=== PATIENT | male | born 1945 | race Caucasian/White ===

== ENCOUNTER 2019-09-08 18:19 | Inpatient (IN) | payer MEDICARE, SELFPAY ==
[2019-09-08] VITALS (10 sets, daily range): BP systolic 90–137; BP diastolic 64–88; PULSE 99–108; RESP 22–25; TEMP 35.9–36.6; O2SAT 85–100; BMI 29.6
--- NOTE | ~2019-09-08 | US_ITS ---
EXAMINATION:US venous doppler LE BI INDICATION:Lower extremity pain TECHNIQUE: Multiple grayscale, color flow and Doppler images of the lower extremity deep venous syste ms were obtained and reviewed. COMPARISON:No prior studies for comparison. FINDINGS: The common femoral, superficial femoral and popliteal veins demonstrate normal respiratory variation, augmentation and compressibility. Color flow is also seen within the posterior tibial, pe roneal, greater saphenous and profunda veins. IMPRESSION: 1: No lower extremity deep venous thrombosis. Reviewed, dictated and finalized at location A. ATTACHER
--- NOTE | ~2019-09-08 | XR_ITS ---
EXAMINATION: XR barium swallow modified EXAM DATE: 09/09/2019 13:18 INDICATION: Dysphagia. TECHNIQUE: Modified barium esophagram was performed by myself to administered fluoroscopy, in conjun ction with speech pathologist who administered barium in varying consistencies as per speech patholog ist documentation. This was recorded on tape. The DAP for this procedure was 4.4 Gycm2. FINDINGS: Oral stage: Adequate function. Pharyngeal phase: Sinus residual. Laryngeal penetration: Demonstrated. Aspiration: Demonstrated, thin liquids. Laryngeal sensitivity: Absent. IMPRESSION: Aspiration demonstrated. Please refer to speech pathologist findings and specific feeding recommendations. Reviewed, dictated and finalized at location A. STANT BRANCH OPERATIONS MANAGER IMPRESSION: Aspiration demonstrated. Please refer to speech pathologist finding s and specific feeding recommendations.
--- NOTE | ~2019-09-08 | XR_ITS ---
EXAMINATION: XR chest 2V DATE: 09/11/2019 09:21 INDICATION: Pneumonia and shortness of breath. TECHNIQUE: frontal and lateral views of the chest were obtained. COMPARISON: Chest radiograph dated 09/08/2019 FINDINGS: Evaluation mildly limited by patient body habitus. Small lung volumes which is further exaggerated on the frontal projection by a severe thoracic kyphosis. Airspace opacities in the lateral lower lung z ones consistent with atelectasis and/or pneumonia superimposed over small bilateral pleural effusions . No pneumothorax. Cardiac silhouette is obscured. Large hiatal hernia. Retained oral contrast materi al in the proximal colon. Chronic midthoracic compression fractures. IMPRESSION: 1. Decreased lung volumes with small bilateral pleural effusions and opacities in the lower lung zone s which could represent atelectasis and/or pneumonia. 2. Large hiatal hernia. Reviewed, dictated and finalized at location A. EL CLEANER IMPRESSION: 1. Decreased lung volumes with small bilateral pleural effusions and opacities in the lower lung zones which could represent atelectasis and/or pneumonia. 2. Large hiatal hernia.
--- NOTE | ~2019-09-08 | XR_ITS ---
EXAMINATION: XR chest 1V portable INDICATION: Shortness of breath TECHNIQUE: Portable AP chest at 1919 hours COMPARISON: None available FINDINGS: The patient is rotated. The lung volumes are low. There are airspace opacities throughout t he right lung and in the left lung base. The heart size is difficult to assess. There is a questionab le hiatal hernia. IMPRESSION: 1. Airspace opacities throughout the right lung and in the left lung base, consistent with atelectasi s versus pneumonia. Reviewed, dictated and finalized at location A. ACTIONS TECHNICIAN IMPRESSION: 1. Airspace opacities throughout the right lung and in the left lung base, cons istent with atelectasis versus pneumonia.
--- NOTE | ~2019-09-08 | US_ITS ---
US art doppler w press LE 09/09/2019 16:12 Indication: Evaluate arterial flow and distal lower extremity bilaterally. Procedure: High-resolution Limited arterial Doppler examination of the lower extremity arteries Comparison: No prior studies for comparison. Findings: There is Doppler signal throughout the lower extremity arteries bilaterally. There is bipha sic flow in the common femoral, superficial femoral, popliteal and dorsalis pedis arteries with monop hasic flow in the posterior tibial arteries. Patient refused blood pressure cuff measurements. Examin ation limited due to leg contractures and patient pain. Impression: 1: Doppler signal identified throughout the lower extremity arteries with mixed monophasic and biphas ic flow. Limited study. Reviewed, dictated and finalized at location A. AID Impression: 1: Doppler signal identified throughout the lower extremity arteries with mixed monophasic and biphasic flow. Limited study.
--- NOTE | ~2019-09-08 | XR_ITS ---
EXAMINATION: XR chest 2V DATE: 09/13/2019 11:25 INDICATION: Pneumonia. Follow-up. TECHNIQUE: Frontal and lateral views of the chest were obtained. COMPARISON: Chest 2 views 09/11/2019, CT abdomen and pelvis 08/28/2015 FINDINGS: The lung volumes are small. There are airspace opacities in all right lung zones and in lef t lower lung zone. There are small pleural effusions. No pneumothorax. The heart size is normal. Ther e is a large hiatal hernia. IMPRESSION: 1. Small lung volumes with airspace opacities in right lung and left lower lung zone with worsening o n the right, consistent with atelectasis versus pneumonia. 2. Small pleural effusions. 3. Large hiatal hernia. Reviewed, dictated and finalized at location A. TH INFORMATION PROVIDER IMPRESSION: 1. Small lung volumes with airspace opacities in right lung and left lower lung zone with worsening on the right, consistent with atelectasis versus pneumonia . 2. Small pleural effusions. 3. Large hiatal hernia.
--- NOTE | ~2019-09-08 | XR_ITS ---
EXAMINATION: XR barium swallow modified DATE: 09/14/2019 11:57 INDICATION: Dysphagia, coughing with thin liquids TECHNIQUE: The patient was given barium-containing material of multiple consistencies to swallow by ketan contreras speech pathologist while I performed fluoroscopy. A single fluoroscopic spot image was recorded. Ketan contreras DAP for this procedure was 3.914 Gycm2. Fluoroscopy exposure time was 2.9 minutes. A single latera l spot radiograph of the neck soft tissues was obtained. FINDINGS: Oral stage: Adequate function. Pharyngeal phase: Adequate function. Laryngeal penetration: Present with solids. Aspiration: Present within liquids by straw. Laryngeal sensitivity: Present. IMPRESSION: 1. Findings as described above. Please refer to the speech therapy report for additional swallow-rela jm findings and intake recommendations. Reviewed, dictated and finalized at location A. 'S ASSISTANT IMPRESSION: 1. Findings as described above. Please refer to the speech therapy report for a dditional swallow-related findings and intake recommendations.
--- NOTE | 2019-09-08 18:32 | ED_ITS ---
I attest that this documentation has been prepared under the direction and in the presence of Sean Haynes MD. Leah Floyd Scribe 09/08/19;18:32 HPI - General Adult General Stated complaint: choking Time Seen by Provider: 09/08/19 18:21
--- NOTE | 2019-09-08 18:34 | ECG_ITS ---
Measurements Intervals Schlater Rate: 104 P: 5 OH: 206 QRS: 0 QRSD: 84 T: 2 QT: 350 QTc: 461 Interpretive Statements SINUS TACHYCARDIA MINIMAL Q WAVES- DIFFUSE LEADS BORDERLINE ST-T WAVE ABNORMALITY- DIFFUSE LEADS BASELINE ARTIFACT- I, II, III, AVR, V3-V4 ABNORMAL ECG Electronically Signed On 09-09-2019 8:14:47 CREDIT OR LOANS OFFICER by William Katz D.O.
--- NOTE | 2019-09-08 18:35 | ED.GENADULT ---
HPI - General Adult General Chief complaint: Unspecified Stated complaint: choking Time Seen by Provider: 09/08/19 18:21 Source: patient, EMS and RN notes reviewed Mode of arrival: EMS History of Present Illness HPI narrative: Pt is a 74 y/o male who presents to the ED, via EMS from 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 Pt states that he is unsure why is here at [facility]. Per EMS, pt blacked out on the way to dinner and during dinner. Pt was choking on broccoli and cauliflower and nursing staff started doing abdominal thrusts on the pt. Nursing staff was able to get the food out with doing the finger sweep. Per pt, pt denies wearing O2 at home. Pt also denies CP and SOB. HPI is limited due to pt's clinical condition. complaint: Choking on Food Onset (ago): minute(s) Pain Consistency: now resolved Associated symptoms: syncope and other (limited due to pt's clinical condition) Treatments prior to arrival: other (abdominal thrusts, finger sweep) Related Data Home Medications Medication Instructions Recorded Confirmed acetaminophen [Tylenol] 650 mg PO Q6H PRN 09/08/19 09/08/19 bisacodyl 5 mg PO HS PRN 09/08/19 09/08/19 calcium carbonate-vitamin D3 1 tablet PO BID 09/08/19 09/08/19 [Calcium 600 + D(3)] cyanocobalamin (vitamin B-12) 1,000 mcg IM MONTHLY 09/08/19 09/08/19 docusate sodium [Colace] 100 mg PO DAILY 09/08/19 09/08/19 lisinopril 10 mg PO DAILY 09/08/19 09/08/19 multivitamin 1 tablet PO DAILY 09/08/19 09/08/19 pantoprazole 40 mg PO BID 09/08/19 09/08/19 polysaccharide iron complex 150 mg PO BID 09/08/19 09/08/19 [Poly-Iron] Allergies Allergy/AdvReac Type Severity Reaction Status Date / Time No Known Allergies Allergy Verified 09/08/19 18:56 Review of Systems Review of Systems: ROS unobtainable: other (limited due to pt's clinical condition) Cardiovascular: Cardiovascular: Denies chest pain Respiratory: Respiratory: Denies dyspnea PMFSH Past Medical History Medical History Anxiety Cerebral cysts COPD (chronic obstructive pulmonary disease) CVA (cerebrovascular accident) affecting the right non-dominant side Essential hypertension GERD (gastroesophageal reflux disease) GI bleed Hemiplegia Iron deficiency anemia Obstructive hydrocephalus Peripheral artery disease Rheumatoid arthritis Surgical History Surgical History Surgical history unknown Family History Family History Father Hypertension Grandparent Colon cancer Mother Alzheimer disease Social History Social History Smoking status: Never smoker Alcohol intake: never Substance use: never Living arrangements: skilled nursing Additional living arrangements comments: Pt lives at [facility]. Gender identity (if verbalized by the patient): Male Spiritual care concerns: No Agree to blood products: Yes Exam Narrative: Exam Narrative: GENERAL: Chronically ill l-appearing, well-nourished, and in no acute distress. HEAD: Normocephalic, atraumatic. ENT: Mucous membranes moist. NECK: Supple. CHEST: Rales bilateral bases and right midlung zone. No respiratory distress. HEART: Regular rate and rhythm. Normal peripheral pulses. ABDOMEN: Soft, nontender, nondistended. EXTREMITIES: Chronic right-sided weakness, left lower extremity deformity and foot ankle that is chronic. Trace edema. NEURO: Alert and oriented x3 a poor historian. Cranial nerves II through XII intact. PSYCH: Normal mood and affect. Course Course Emergency Course: Informed patient and family of diagnosis and care plan. Zosyn ordered. Consultations Consultation #1: Discussed case with Dr. Butts (Hospitalist). Accepts admission. Date: 09/08/19 Time: 20:09 Vital Signs Vital signs: Vital Signs Temperature 96.
[2019-09-08] MEDS: IPRATROPIUM BR 0.02% INH SOLN 0.5 MG/2.5 ML VIAL INHALATION (19:04)
[2019-09-08] MEDS: ALBUTEROL SULFATE NEB 2.5 MG/0.5 ML INH 5 MG INHALATION (19:04)
[2019-09-08 19:11] LABS: Basophils Absolute Auto 0.1 K/mm3 (0.0-0.1); Basophils Percent Auto 0.4 % (0.2-1.2); Eosinophils Absolute Auto 0.3 K/mm3 (0-0.3); Eosinophils Percent Auto 1.7 % (0-4.4); Hematocrit 39.5 % (42.0-52.0); Hemoglobin 12.4 g/dL (14.0-18.0); Immature Granulocyte Absolute 0.32 K/mm3 (0.00-0.031); Lymphocytes Absolute Auto 1.76 K/mm3 (0.9-3.2); Lymphocytes Percent Auto 11.3 % (18.3-44.2); Mean Corpuscular HGB Conc 31.4 g/dl (32-36); Mean Corpuscular Hemoglobin 28.4 pg (26-34); Mean Corpuscular Volume 90.6 fl (80-100); Mean Platelet Volume 10.1 fl (7.4-10.4); Monocytes Absolute Auto 0.7 K/mm3 (0.1-0.6); Monocytes Percent Auto 4.6 % (2.6-8.5); Neutrophils Absolute Auto 12.5 K/mm3 (1.3-6.7); Platelet Count Result 257 k/mm3 (150-375); Red Blood Count 4.36 M/mm3 (4.6-6.20); Red Cell Distribution Width 14.5 % (11.5-14.5); White Blood Count 15.6 K/mm3 (4.5-10.0)
[2019-09-08 19:12] LABS: Alveolar/Arterial O2 Gradient 98.3 mmHg; Base Excess ABG 2.1 mEq/l (+/-2.0); Carboxyhemoglobin 0.3 % THb (0-2.0); Fractional Inspired Oxygen 32 %; HCO3 ABG 28.8 mEq/l (22.0-26.0); Methemoglobin ABG 0.4 %THb (0-1.5); Oxygen Content ABG 17.1 %vol (16.0-22.0); Oxyhemoglobin 91.6 % THb (90.0-100.0); PCO2 ABG 53.8 mmHg (35.0-45.0); PO2 ABG 66.9 mmHg (80.0-100.0); PO2 FiO2 Ratio Arterial Blood 2.09 %; Reduced Hemoglobin 7.7 %THb (0-5.0); Total Hemoglobin 13.3 g/dL (12.0-18.0); pH ABG 7.346 (7.350-7.450)
[2019-09-08 19:13] LABS: Site Drawn LEFT RADIAL
[2019-09-08 19:14] LABS: Device NASAL CANNULA; Modified Allen's Test Pass
[2019-09-08 19:21] LABS: Lactic Acid Reflex 1.5 mmol/L (0.7-2.1)
[2019-09-08 19:22] LABS: Blood Urea Nitrogen 34 mg/dL (9-20); Calcium 8.7 mg/dL (8.4-10.2); Carbon Dioxide 28 mmol/L (22-30); Chloride 96 mmol/L (98-107); Estimated Glomerular Filt Rate > 60; Glucose 145 mg/dL (75-110); Potassium 4.1 mmol/L (3.4-5.0); Sodium 136 mmol/L (137-145)
--- NOTE | 2019-09-08 19:23 | PC.NURSE ---
assumed care of pt at this time, received report from bobbi browning.
[2019-09-08] MEDS: SODIUM CHLORIDE 0.9% IV 1,000 ML 999 ML (19:31)
--- NOTE | 2019-09-08 22:19 | PM.IMHP ---
H&P: HPI History of Present Illness Chief complaint: choking episode Narrative: This is a pleasant 74 year old male who is known to be mostly bed bound and resides at [facility] following an illness about 10 years ago which the family believes might have been a stroke which left him with permanent weakness. [facility] suffering a choking spell. Apparently the patent was supposed to be on a soft diet as there was some concern about his swallowing and he choked on broccoli and cauliflower tonight. Nursing staff had to put the patient on the ground and do abdominal thrusts and finger sweeps to get the food out. The patient is known to have chronic respiratory failure and is always on 3L of oxygen via [place] for an unknown chronic respiratory illness. He does not see pulmonology regularly. Tonight he is only complaining of feeling chills and right sided chest pressure. He denies any overt fever, headache, cough, shortness of breath, sore throat, abdominal pain, dysuria, hematuria, diarrhea or rectal bleeding. He denies any worsening LE swelling. The family tells me that he is supposed to be referred to see a vascular surgeon for his chronic purplish discoloration of his feet. The patent was found to have right sided aspiration pneumonia on CXR tonight. He was started on Zosyn and admitted to the hospital for futher care. Review of Systems Review of Systems: All systems reviewed & are unremarkable except as noted in HPI and below PMFSH Past Medical History Medical History Anxiety Cerebral cysts COPD (chronic obstructive pulmonary disease) CVA (cerebrovascular accident) affecting the right non-dominant side Essential hypertension GERD (gastroesophageal reflux disease) GI bleed Hemiplegia Iron deficiency anemia Obstructive hydrocephalus Peripheral artery disease Rheumatoid arthritis Surgical History Surgical History Surgical history unknown Family History Family History Father Hypertension Grandparent Colon cancer Mother Alzheimer disease Social History Social History Smoking status: Never smoker Alcohol intake: never Substance use: never Living arrangements: [facility] Additional living arrangements comments: Pt lives at [facility]. Gender identity (if verbalized by the patient): Male Spiritual care concerns: No Agree to blood products: Yes Meds Home Medications and Allergies Home Medications Medication Instructions Recorded Confirmed Type acetaminophen [Tylenol] 650 mg PO Q6H PRN 09/08/19 09/08/19 History bisacodyl 5 mg PO HS PRN 09/08/19 09/08/19 History calcium carbonate-vitamin D3 1 tablet PO BID 09/08/19 09/08/19 History [Calcium 600 + D(3)] cyanocobalamin (vitamin B-12) 1,000 mcg IM MONTHLY 09/08/19 09/08/19 History docusate sodium [Colace] 100 mg PO DAILY 09/08/19 09/08/19 History lisinopril 10 mg PO DAILY 09/08/19 09/08/19 History multivitamin 1 tablet PO DAILY 09/08/19 09/08/19 History pantoprazole 40 mg PO BID 09/08/19 09/08/19 History polysaccharide iron complex 150 mg PO BID 09/08/19 09/08/19 History [Poly-Iron] Allergies Allergy/AdvReac Type Severity Reaction Status Date / Time No Known Allergies Allergy Verified 09/08/19 18:56 Vital Signs Vital Signs - 24 hr 09/08/19 18:34 09/08/19 18:54 09/08/19 19:04 Temperature 35.9 C L Pulse Rate 108 H 104 H 103 H Respiratory Rate 24 H 25 H Blood Pressure 121/87 Pulse Oximetry 85 L 09/08/19 19:24 09/08/19 19:25 09/08/19 19:52 Temperature Pulse Rate 105 H 105 H 99 Respiratory Rate 22 H 22 H 22 H Blood Pressure 90/64 L 119/88 Pulse Oximetry 95 100 09/08/19 20:04 09/08/19 20:19 09/08/19 20:49 Temperature Pul
--- NOTE | 2019-09-08 22:42 | ADMGEN ---
This patient, Yaron Prater, was admitted to Medical Room 243-. Patient/family oriented to hospital policies and general routines including ID bracelet, bed and alarms, visiting hours, pain management, procedures, bathroom and other care routines, personal items, smoking policy, room service/diet, and visiting hours. Valuables list has been completed. Information on how to activate the Rapid Response Team has been discussed. Patient/Family are encouraged to report perceived risks to care and to ask questions if they do not understand what they are told or what they should do.
[2019-09-09] VITALS (20 sets, daily range): BP systolic 126–186; BP diastolic 74–115; PULSE 84–118; RESP 18–24; TEMP 35.8–36.8; O2SAT 90–100
[2019-09-09] MEDS: SODIUM CHLORIDE 0.9% IV 1,000 ML 125 ML IV CONT ×2 (02:32→11:13)
[2019-09-09] MEDS: IPRATROPIUM BR 0.02% INH SOLN 0.5 MG/2.5 ML VIAL INHALATION ×4 (02:45→21:37)
[2019-09-09] MEDS: ALBUTEROL SULFATE NEB 2.5 MG/0.5 ML INH 5 MG INHALATION ×4 (02:45→21:37)
--- NOTE | 2019-09-09 04:44 | PC.NURSE ---
Sternal bruise appeared hours after admission. Pt states they were pushing on him when he was found to be choking at the [facility].
[2019-09-09 05:29] LABS: Blood Urea Nitrogen 31 mg/dL (9-20); Calcium 8.6 mg/dL (8.4-10.2); Carbon Dioxide 29 mmol/L (22-30); Chloride 100 mmol/L (98-107); Estimated CRCL calculation 65 ml/min; Estimated Glomerular Filt Rate > 60; Glucose 139 mg/dL (75-110); Potassium 4.1 mmol/L (3.4-5.0); Sodium 138 mmol/L (137-145)
[2019-09-09 05:33] LABS: Basophils Percent Auto 0.1 % (0.2-1.2); Hematocrit 37.6 % (42.0-52.0); Hemoglobin 11.6 g/dL (14.0-18.0); Immature Granulocyte Absolute 0.05 K/mm3 (0.00-0.031); Immature Granulocyte Percent A 0.4 % (0-0.5); Lymphocytes Absolute Auto 0.66 K/mm3 (0.9-3.2); Lymphocytes Percent Auto 5.4 % (18.3-44.2); Mean Corpuscular HGB Conc 30.9 g/dl (32-36); Mean Corpuscular Hemoglobin 27.8 pg (26-34); Monocytes Absolute Auto 0.8 K/mm3 (0.1-0.6); Monocytes Percent Auto 6.5 % (2.6-8.5); Neutrophils Absolute Auto 10.6 K/mm3 (1.3-6.7); Neutrophils Percent Auto 87.6 % (45.5-73.1); Platelet Count Result 212 k/mm3 (150-375); Red Blood Count 4.18 M/mm3 (4.6-6.20); Red Cell Distribution Width 14.5 % (11.5-14.5); White Blood Count 12.1 K/mm3 (4.5-10.0)
[2019-09-09] MEDS: hydrALAZINE HCL 20 MG/ML VIAL 10 MG IV PUSH ×2 (05:39→21:08)
[2019-09-09] MEDS: ENOXAPARIN 40 MG/0.4 ML SYRINGE SUB-Q (09:42)
[2019-09-09] MEDS: PANTOPRAZOLE SODIUM IV 40 MG VIAL IV PUSH (09:42)
--- NOTE | 2019-09-09 13:57 | PM.CNCAR ---
Assessment and Plan Assessment and plan (1) Peripheral artery disease: Code(s): I73.9 - Peripheral vascular disease, unspecified Status: Chronic Assessment and Plan: He seems to have chronic ischemia, with tenderness, decreased pulses, will get arterial duplex to evaluate the severity and location of disease to consider further treatment if indicated. For the time being would agree with aspirin, would add Plavix (2) Chronic respiratory failure: Code(s): J96.10 - Chronic respiratory failure, unspecified whether with hypoxia or hypercapnia Status: Chronic Assessment and Plan: Will get echocardiogram to evaluate current left ventricular systolic function look for any structural heart disease (3) Essential hypertension: Code(s): I10 - Essential (primary) hypertension Status: Chronic (4) CVA (cerebrovascular accident): Qualifiers: CVA mechanism: unspecified Qualified Code(s): I63.9 - Cerebral infarction, unspecified Code(s): I63.9 - Cerebral infarction, unspecified Status: Chronic (5) Aspiration pneumonia: Qualifiers: Aspiration pneumonia type: unspecified Laterality: bilateral Lung location: lower lobe of lung Qualified Code(s): J69.0 - Pneumonitis due to inhalation of food and vomit Code(s): J69.0 - Pneumonitis due to inhalation of food and vomit Status: Acute (6) Shortness of breath: Code(s): R06.02 - Shortness of breath Status: Acute Assessment and Plan: Will get echocardiogram to evaluate current status of left ventricular systolic function look for any other causes of shortness of breath Additional Plan Thank you for allowing me to participate in this patient's care, I will be following up with you. Please do not hesitate to call me for any other inquiry History of Present Illness History of Present Illness Consult date/time: 09/09/19 13:57 Chief complaint is shortness of breath, leg discoloration 74 years old gentleman, with history of COPD, history of hypertension admitted to the hospital because of choking and shortness breath from the residential. Noted last night to have sudden discoloration of his feet more so the right foot, with redness, noted to have decreased pulses. He has significant contracture of the legs and he had left ankle surgery in the past, since then he has not active, and he has chronic pain in both legs. No history of ulcer, currently he has mild swelling of the right foot and right leg with significant discoloration and tenderness. He has history of COPD for which he is on chronic home oxygen, no history of chest pain no palpitation no known cardiac history. Reason For Visit: choking episode Review of Systems Constitutional: Constitutional: Reports fatigue and Reports weakness Cardiovascular: Cardiovascular: Reports as per HPI Respiratory: Respiratory: Reports cough and Reports dyspnea PMFSH Past Medical History Medical History Anxiety Cerebral cysts COPD (chronic obstructive pulmonary disease) CVA (cerebrovascular accident) affecting the right non-dominant side Essential hypertension GERD (gastroesophageal reflux disease) GI bleed Hemiplegia Iron deficiency anemia Obstructive hydrocephalus Peripheral artery disease Rheumatoid arthritis Surgical History Surgical History Surgical history unknown Family History Family History Father Hypertension Grandparent Colon cancer Mother Alzheimer disease Social History Social History Smoking status: Never smoker Alcohol intake: never Substance use: never Living arrangements: residential Additional living arrangements comments: Pt lives at [facility]. Gender identity (if verbalized
--- NOTE | 2019-09-09 14:26 | PM.IMPN ---
Progress Note: A&P Assessment and Plan (1) Aspiration pneumonia: Qualifiers: Aspiration pneumonia type: unspecified Laterality: bilateral Lung location: lower lobe of lung Qualified Code(s): J69.0 - Pneumonitis due to inhalation of food and vomit Code(s): J69.0 - Pneumonitis due to inhalation of food and vomit Status: Acute Assessment and Plan: 09/09/19 14:26 Patient is 74-year-old male resident of nursing with history of stroke bed-bound and on soft diet however patient was given broccoli and he choked and patient was in distress he was given abdominal thrusts to remove the food from his pharyngeal patient is found to have aspiration pneumonia was started on Zosyn, will follow-up on the sputum and blood culture, repeat chest x-ray as an today to further evaluate, patient also has a moderate to severe peripheral vascular disease as both his lower extremities her hyperemic and somewhat anoxic, patient himself is a poor historian it present time he denies any chest pain shortness of breath, he is scheduled to have a modified swallow study later today (2) Leukocytosis: Qualifiers: Leukocytosis type: unspecified Qualified Code(s): D72.829 - Elevated white blood cell count, unspecified Code(s): D72.829 - Elevated white blood cell count, unspecified Status: Acute Assessment and Plan: Secondary to aspiration pneumonia. Monitor CBCd. (3) Chronic anemia: Code(s): D64.9 - Anemia, unspecified Status: Chronic Assessment and Plan: No signs of acute blood loss. Likely anemia of chronic disease. Will monitor H/H, transfuse prn. (4) Essential hypertension: Code(s): I10 - Essential (primary) hypertension Status: Chronic Assessment and Plan: Stable Monitor blood pressure. We will administer PRN IV antihypertensives as needed overnight. (5) CVA (cerebrovascular accident): Qualifiers: CVA mechanism: unspecified Qualified Code(s): I63.9 - Cerebral infarction, unspecified Code(s): I63.9 - Cerebral infarction, unspecified Status: Chronic Assessment and Plan: stable. (6) Chronic respiratory failure: Code(s): J96.10 - Chronic respiratory failure, unspecified whether with hypoxia or hypercapnia Status: Chronic Assessment and Plan: Continue oxygen supplementation to maintain O2 sats >94%. (7) Peripheral artery disease: Code(s): I73.9 - Peripheral vascular disease, unspecified Status: Chronic Assessment and Plan: Peripheral pulses are palpable in all 4 limbs. We will obtain LE arterial duplex U/S bilaterally in am. Patient is seen by infrastructure analyst and further workup is in progress Subjective Date/time seen: 09/09/19 14:26 Patient is 74-year-old male resident of nursing with history of stroke bed-bound and on soft diet however patient was given broccoli and he choked and patient was in distress he was given abdominal thrusts to remove the food from his pharyngeal patient is found to have aspiration pneumonia was started on Zosyn patient also has a moderate to severe peripheral vascular disease as both his lower extremities her hyperemic and somewhat anoxic, patient himself is a poor historian it present time he denies any chest pain shortness of breath, he is scheduled to have a modified swallow study later today Review of Systems Review of Systems: All systems reviewed & are unremarkable except as noted in HPI and below Exam Const: General: comfortable and no acute distress HENMT: General nose exam: Normal nares present Mouth: Yes moist mucous membranes Eyes: General: appearance normal, both eyes and all related structures Sclera: sclerae normal Neck: Neck: supple Resp: Other: Bilateral fair air entry with rhonchi Cardio: Rate: regular rate Rhythm: regular rhythm GI: Auscultation: normal bowel sounds Skin: Other: Bilateral toes are contracted and appeared hyper
[2019-09-09 15:54] LABS: Cholesterol 152 mg/dL (0-200); HDL Direct 67 mg/dL; Triglycerides 60 mg/dL (<150)
[2019-09-09 16:04] LABS: LDL Cholesterol Direct 69 mg/dL
[2019-09-10] VITALS (16 sets, daily range): BP systolic 138–164; BP diastolic 65–94; PULSE 92–114; RESP 18–24; TEMP 36.1–37.2; O2SAT 91–98
--- NOTE | 2019-09-10 | ECHO_ITS ---
Patient Info Name: Nick Prater Age: 74 years : 1945 Gender: Male Ht: 60 in Wt: 151 lbs BSA: 1.73 m2 HR: 96 bpm BP: 139 / 82 mmHg Technical Quality: Good Exam Date: 09/10/2019 9:18 AM Exam Location: [facility] Patient Status: Inpatient Admit Date: 09/09/2019 Staff Ordering Physician: Sami Abel MD Veterans Adviser: Regan Barclay, HECTOR, RT Attending Provider: Trey Butts MD Referring Physician: ALESHA VILLARREAL REHAB ; Exam Type: CA echo doppler color flow Study Info Indications R06.02 - Shortness of breath Complete two-dimensional, color flow and Doppler transthoracic echocardiogram is performed. Summary 1. Left ventricular systolic function is normal, estimated at 60-65%. 2. The aortic valve is not well visualized. 3. There is no aortic valve stenosis. 4. The mitral valve has normal leaflets. 5. There is no mitral valve regurgitation. 6. The tricuspid valve leaflets are normal. 7. The prox ascending aorta size is mildly dilated. 8. There is no pericardial effusion. Left Ventricle Left ventricular chamber dimension is normal. Left ventricular systolic function is normal, estimated at 60-65%. There is no increased left ventricular wall thickness. Left ventricular septal wall motion is normal. Right Ventricle Right ventricular chamber dimension is normal. Right ventricular systolic function is normal. Left Atria Left atrial chamber dimension is normal. Right Atria Right atrial chamber dimension is normal. Aortic Valve The aortic valve is not well visualized. There is no aortic valve sclerosis. There is no aortic valve stenosis. There is no aortic valve regurgitation. Pulmonic Valve The pulmonic valve is normal. There is no pulmonic valve stenosis. There is no pulmonic regurgitation. Mitral Valve The mitral valve has normal leaflets. There is no mitral valve stenosis. There is no mitral valve regurgitation. Tricuspid Valve The tricuspid valve leaflets are normal. There is trace tricuspid valve regurgitation. Mild pulmonary hypertension, estimated pulmonary arterial systolic pressure is 45-50 mmHg. Pericardium/Pleural The pericardium appears normal. There is no pericardial effusion. Inferior Vena Cava Inferior vena cava is not well visualized. Aorta The prox ascending aorta size is mildly dilated. measures 3.8 cm. Left Ventricular Outflow Tract Name Value Normal LVOT 2D LVOT Diameter 2.1 cm LVOT Doppler LVOT Peak Gradient 2 mmHg LVOT Mean Gradient 1 mmHg LVOT VTI 15 cm LVOT VTI/AV VTI Ratio 0.8 LVOT Stroke Volume 51 ml LVOT CO 3.9 l/min LVOT CI 2.3 l/min/m2 Pulmonic Valve Name Value Normal PV Doppler
[2019-09-10] MEDS: SODIUM CHLORIDE 0.9% IV 1,000 ML 125 ML IV CONT ×3 (01:47→20:22)
[2019-09-10] MEDS: IPRATROPIUM BR 0.02% INH SOLN 0.5 MG/2.5 ML VIAL INHALATION ×3 (02:54→18:51)
[2019-09-10] MEDS: ALBUTEROL SULFATE NEB 2.5 MG/0.5 ML INH 5 MG INHALATION ×3 (02:54→18:51)
[2019-09-10 05:49] LABS: Hematocrit 35.4 % (42.0-52.0); Hemoglobin 11.5 g/dL (14.0-18.0); Mean Corpuscular HGB Conc 32.5 g/dl (32-36); Mean Corpuscular Hemoglobin 28.5 pg (26-34); Mean Corpuscular Volume 87.8 fl (80-100); Mean Platelet Volume 10.4 fl (7.4-10.4); Platelet Count Result 176 k/mm3 (150-375); Red Blood Count 4.03 M/mm3 (4.6-6.20); Red Cell Distribution Width 14.7 % (11.5-14.5); White Blood Count 7.5 K/mm3 (4.5-10.0)
[2019-09-10 05:52] LABS: Blood Urea Nitrogen 17 mg/dL (9-20); Calcium 8.4 mg/dL (8.4-10.2); Carbon Dioxide 25 mmol/L (22-30); Chloride 102 mmol/L (98-107); Estimated CRCL calculation 65 ml/min; Estimated Glomerular Filt Rate > 60; Glucose 93 mg/dL (75-110); Potassium 3.7 mmol/L (3.4-5.0); Sodium 139 mmol/L (137-145)
[2019-09-10] MEDS: ASPIRIN 81 MG ENTERIC TABLET PO (10:08)
[2019-09-10] MEDS: PANTOPRAZOLE SODIUM IV 40 MG VIAL IV PUSH (10:09)
[2019-09-10] MEDS: ENOXAPARIN 40 MG/0.4 ML SYRINGE SUB-Q (10:09)
[2019-09-10] MEDS: CLOPIDOGREL BISULFATE 75 MG TABLET PO (10:09)
--- NOTE | 2019-09-10 15:09 | PM.IMPN ---
Progress Note: A&P Assessment and Plan (1) Aspiration pneumonia: Qualifiers: Aspiration pneumonia type: unspecified Laterality: bilateral Lung location: lower lobe of lung Qualified Code(s): J69.0 - Pneumonitis due to inhalation of food and vomit Code(s): J69.0 - Pneumonitis due to inhalation of food and vomit Status: Acute Assessment and Plan: 09/10/19 15:09 Patient is 74-year-old male resident of nursing with history of stroke bed-bound and on soft diet however patient was given broccoli and he choked and patient was in distress he was given abdominal thrusts to remove the food from his pharyngeal patient is found to have aspiration pneumonia was started on Zosyn, will follow-up on the sputum and blood culture, repeat chest x-ray as an today to further evaluate, patient also has a moderate to severe peripheral vascular disease as both his lower extremities her hyperemic and somewhat anoxic, patient himself is a poor historian, patient had a modified swallow study yesterday requiring honey thickened diet, patient also seen by vascular and further workup is in progress, patient is feeling better not a short of breath as when he arrived he he denies any chest pain shortness of breath palpitation fever or chills, patient's symptoms improving clinically repeat chest x-ray tomorrow to further evaluate for improvement in his aspiration pneumonia (2) Leukocytosis: Qualifiers: Leukocytosis type: unspecified Qualified Code(s): D72.829 - Elevated white blood cell count, unspecified Code(s): D72.829 - Elevated white blood cell count, unspecified Status: Acute Assessment and Plan: Secondary to aspiration pneumonia. Monitor CBCd. (3) Chronic anemia: Code(s): D64.9 - Anemia, unspecified Status: Chronic Assessment and Plan: No signs of acute blood loss. Likely anemia of chronic disease. Will monitor H/H, transfuse prn. (4) Essential hypertension: Code(s): I10 - Essential (primary) hypertension Status: Chronic Assessment and Plan: Stable Monitor blood pressure. We will administer PRN IV antihypertensives as needed overnight. (5) CVA (cerebrovascular accident): Qualifiers: CVA mechanism: unspecified Qualified Code(s): I63.9 - Cerebral infarction, unspecified Code(s): I63.9 - Cerebral infarction, unspecified Status: Chronic Assessment and Plan: stable. (6) Chronic respiratory failure: Code(s): J96.10 - Chronic respiratory failure, unspecified whether with hypoxia or hypercapnia Status: Chronic Assessment and Plan: Continue oxygen supplementation to maintain O2 sats >94%. (7) Peripheral artery disease: Code(s): I73.9 - Peripheral vascular disease, unspecified Status: Chronic Assessment and Plan: Peripheral pulses are palpable in all 4 limbs. We will obtain LE arterial duplex U/S bilaterally in am. Patient is seen by patternmaker hand and further workup is in progress Subjective Date/time seen: 09/10/19 15:09 Patient is 74-year-old male resident of nursing with history of stroke bed-bound and on soft diet however patient was given broccoli and he choked and patient was in distress he was given abdominal thrusts to remove the food from his pharyngeal patient is found to have aspiration pneumonia was started on Zosyn, will follow-up on the sputum and blood culture, repeat chest x-ray as an today to further evaluate, patient also has a moderate to severe peripheral vascular disease as both his lower extremities her hyperemic and somewhat anoxic, patient himself is a poor historian, patient had a modified swallow study yesterday requiring honey thickened diet, patient also seen by vascular and further workup is in progress, patient is feeling better not a short of breath as when he arrived he he denies any chest pain shortness of breath palpitation fever or chills, patient's symptoms impro
--- NOTE | 2019-09-10 15:11 | PM.PNCARD ---
Progress Note: A&P Assessment and Plan (1) Peripheral artery disease: Code(s): I73.9 - Peripheral vascular disease, unspecified Status: Chronic Assessment and Plan: Mostly distal disease. No pain or ulcers. given his baseline functional status would not proceed with any invasive evaluation and continue maximal medical therapy. Continue ASA. Started also on Plavix. LDL is 69. He is not on any statin (2) Chronic respiratory failure: Code(s): J96.10 - Chronic respiratory failure, unspecified whether with hypoxia or hypercapnia Status: Chronic Assessment and Plan: 2D echo with normal LV systolic function and no significant valvular disease. Mild pulmonary HTN noted, that is likely due to chronic resp failure (3) Aspiration pneumonia: Qualifiers: Aspiration pneumonia type: unspecified Laterality: bilateral Lung location: lower lobe of lung Qualified Code(s): J69.0 - Pneumonitis due to inhalation of food and vomit Code(s): J69.0 - Pneumonitis due to inhalation of food and vomit Status: Acute Assessment and Plan: management per primary team Subjective Date/time seen: 09/10/19 15:11 Feels better overall. Denies chest pain or dyspnea.. No lower ext ulcers or pain. . Review of Systems Review of Systems: All systems reviewed & are unremarkable except as noted in HPI and below Constitutional: Constitutional: Denies fatigue and Denies headache(s) Eyes: Eyes: Denies blurry vision ENT: Reports Normal hearing present and Denies headache(s) Cardiovascular: Cardiovascular: Denies chest pain, Denies diaphoresis, Denies pedal edema, Denies leg edema, Denies lightheadedness, Denies palpitations and Denies dyspnea Respiratory: Respiratory: Denies cough and Denies dyspnea Gastrointestinal: Gastrointestinal: Denies abdominal pain Musculoskeletal: Musculoskeletal: Denies back pain Neurologic: Reports Normal hearing present and Denies headache(s) Psychiatric: Psychiatric: Denies anxiety Endocrine: Endocrine: Denies fatigue and Denies palpitations Exam Narrative: Exam Narrative: contracted upper and lower ext, no ulcers. Awake and alert. . Const: General: no acute distress Eyes: Sclera: sclerae normal Neck: Neck: no JVD Carotids: no bruits Resp: Effort & Inspection: normal respiratory effort Auscultation: clear to auscultation bilaterally Cardio: Rate: regular rate and not tachycardic Rhythm: regular rhythm Heart sounds: no gallops, no murmurs and no rubs GI: GI Palp: Yes Soft to palpation and No Tenderness to palpation present (GI) Neuro: Cranial nerves: Yes Normal hearing present Speech: normal speech Extrem: General: no edema Psych: Affect: normal affect Objective Data Vital Signs Vital Signs: Vital Signs - 24 hr 09/09/19 16:00 09/09/19 16:32 09/09/19 16:39 Temperature Pulse Rate 100 94 98 Respiratory Rate 20 20 Blood Pressure Pulse Oximetry 09/09/19 20:00 09/09/19 20:52 09/09/19 21:38 Temperature 36.8 C Pulse Rate 93 100 Respiratory Rate 22 H Blood Pressure 186/101 H Pulse Oximetry 99 95 09/09/19 21:39 09/09/19 21:49 09/09/19 22:38 Temperature Pulse Rate 109 H 111 H Respiratory Rate 20 20 Blood Pressure Pulse Oximetry 94 09/10/19 00:00 09/10/19 02:54 09/10/19 02:59 Temperature 36.1 C L Pulse Rate 95 96 98 Respiratory Rate 22 H 20 20 Blood Pressure 138/65 Pulse Oximetry 93 09/10/19 04:00 09/10/19 06:00 09/10/19 14:00 Temperature 36.3 C L 37.2 C Pulse Rate 101 H 104 H 108 H Respiratory Rate 24 H 22 H Blood Pressure 139/82 151/94 H Pulse Oximetry 91 97 Intake/Output Intake/Output: Intake & Output 09/07/19 09/08/19 09/09/19 09/10/19 23:59 23:59 23:59 23:59 Intake Total 2420 1200 Balance 2420 1200 Meds/Results Medications: Active Medications Generic Name Dose Route Start Last Admin Trade Name Freq PRN Reason Stop Dose Admin Alb
--- NOTE | 2019-09-10 15:13 | PC.NURSE ---
On 09/10/19, the student, Danna Lopez, provided care and [facility]. I have reviewed the student's documentation and agree with the findings.
[2019-09-11] VITALS (18 sets, daily range): BP systolic 111–128; BP diastolic 60–88; PULSE 98–122; RESP 16–20; TEMP 36.6–36.9; O2SAT 94–99
[2019-09-11] MEDS: ALBUTEROL SULFATE NEB 2.5 MG/0.5 ML INH 5 MG INHALATION ×4 (01:09→19:39)
[2019-09-11] MEDS: IPRATROPIUM BR 0.02% INH SOLN 0.5 MG/2.5 ML VIAL INHALATION ×4 (01:09→19:39)
[2019-09-11] MEDS: SODIUM CHLORIDE 0.9% IV 1,000 ML 125 ML IV CONT (03:08)
[2019-09-11 05:29] LABS: Hematocrit 35.2 % (42.0-52.0); Hemoglobin 11.1 g/dL (14.0-18.0); Mean Corpuscular HGB Conc 31.5 g/dl (32-36); Mean Corpuscular Hemoglobin 27.9 pg (26-34); Mean Corpuscular Volume 88.4 fl (80-100); Mean Platelet Volume 10.5 fl (7.4-10.4); Platelet Count Result 157 k/mm3 (150-375); Red Blood Count 3.98 M/mm3 (4.6-6.20); Red Cell Distribution Width 14.7 % (11.5-14.5)
[2019-09-11 05:56] LABS: Blood Urea Nitrogen 11 mg/dL (9-20); Calcium 8.2 mg/dL (8.4-10.2); Carbon Dioxide 26 mmol/L (22-30); Chloride 101 mmol/L (98-107); Estimated CRCL calculation 88 ml/min; Estimated Glomerular Filt Rate > 60; Glucose 95 mg/dL (75-110); Potassium 3.4 mmol/L (3.4-5.0); Sodium 135 mmol/L (137-145)
[2019-09-11] MEDS: PANTOPRAZOLE SODIUM IV 40 MG VIAL IV PUSH (10:13)
[2019-09-11] MEDS: POTASSIUM CHLORIDE 20 MEQ PACKET (FOR LIQUID) 40 MEQ PO (10:13)
[2019-09-11] MEDS: MULTIVITAMINS THERAPEUTIC TAB (*BKC) 1 TABLET PO (10:14)
[2019-09-11] MEDS: DOCUSATE SODIUM 100 MG CAPSULE PO (10:14)
[2019-09-11] MEDS: lisinopriL 10 MG TABLET PO (10:14)
[2019-09-11] MEDS: POLYSACCHARIDE IRON COMPLEX 150 MG CAPSULE PO ×2 (10:14→17:23)
[2019-09-11] MEDS: CLOPIDOGREL BISULFATE 75 MG TABLET PO (10:14)
[2019-09-11] MEDS: ASPIRIN 81 MG ENTERIC TABLET PO (10:14)
[2019-09-11] MEDS: ENOXAPARIN 40 MG/0.4 ML SYRINGE SUB-Q (10:15)
--- NOTE | 2019-09-11 12:31 | PM.IMPN ---
Progress Note: A&P Assessment and Plan (1) Aspiration pneumonia: Qualifiers: Aspiration pneumonia type: unspecified Laterality: bilateral Lung location: lower lobe of lung Qualified Code(s): J69.0 - Pneumonitis due to inhalation of food and vomit Code(s): J69.0 - Pneumonitis due to inhalation of food and vomit Status: Acute Assessment and Plan: 09/11/19 12:31 Patient is 74-year-old male resident of [facility] with history of stroke bed-bound and on soft diet however patient was given broccoli and he choked and patient was in distress he was given abdominal thrusts to remove the food from his pharyngeal patient is found to have aspiration pneumonia was started on Zosyn, will follow-up on the sputum and blood culture, repeat chest x-ray as an today to further evaluate, patient also has a moderate to severe peripheral vascular disease as both his lower extremities her hyperemic and somewhat anoxic, patient himself is a poor historian, patient had a modified swallow study yesterday requiring honey thickened diet, patient also seen by vascular and further workup is in progress, patient is feeling better not a short of breath as when he arrived he he denies any chest pain shortness of breath palpitation fever or chills, patient's symptoms improving clinically, repeat CXR shows b/l pleural effusion and concerning for pneumonia, continue Zosyn will add Lasix 40 mg IV will continue to monitor (2) Leukocytosis: Qualifiers: Leukocytosis type: unspecified Qualified Code(s): D72.829 - Elevated white blood cell count, unspecified Code(s): D72.829 - Elevated white blood cell count, unspecified Status: Acute Assessment and Plan: Secondary to aspiration pneumonia. Monitor CBCd. (3) Chronic anemia: Code(s): D64.9 - Anemia, unspecified Status: Chronic Assessment and Plan: No signs of acute blood loss. Likely anemia of chronic disease. Will monitor H/H, transfuse prn. (4) Essential hypertension: Code(s): I10 - Essential (primary) hypertension Status: Chronic Assessment and Plan: Stable Monitor blood pressure. We will administer PRN IV antihypertensives as needed overnight. (5) CVA (cerebrovascular accident): Qualifiers: CVA mechanism: unspecified Qualified Code(s): I63.9 - Cerebral infarction, unspecified Code(s): I63.9 - Cerebral infarction, unspecified Status: Chronic Assessment and Plan: stable. (6) Chronic respiratory failure: Code(s): J96.10 - Chronic respiratory failure, unspecified whether with hypoxia or hypercapnia Status: Chronic Assessment and Plan: Continue oxygen supplementation to maintain O2 sats >94%. (7) Peripheral artery disease: Code(s): I73.9 - Peripheral vascular disease, unspecified Status: Chronic Assessment and Plan: Peripheral pulses are palpable in all 4 limbs. We will obtain LE arterial duplex U/S bilaterally in am. Patient is seen by data management and further workup is in progress Additional Plan I suspect the patient will likely need at least 2 nights of inpatient medical therapy for his acute aspiration pneumonia. Date of service was 09/08/2019 at 21:30 hrs. Subjective Date/time seen: 09/11/19 12:31 Patient is 74-year-old male resident of nursing with history of stroke bed-bound and on soft diet however patient was given broccoli and he choked and patient was in distress he was given abdominal thrusts to remove the food from his pharyngeal patient is found to have aspiration pneumonia was started on Zosyn, will follow-up on the sputum and blood culture, repeat chest x-ray as an today to further evaluate, patient also has a moderate to severe peripheral vascular disease as both his lower extremities her hyperemic and somewhat anoxic, patient himself is a poor historian, patient had a modified swallow study yesterday requiring honey thickened diet, zeeshan
[2019-09-11] MEDS: FUROSEMIDE INJ 40 MG/4 ML VIAL IV PUSH (13:19)
--- NOTE | 2019-09-11 15:04 | PM.PNCARD ---
Progress Note: A&P Assessment and Plan (1) Peripheral artery disease: Code(s): I73.9 - Peripheral vascular disease, unspecified Status: Chronic Assessment and Plan: Mostly distal disease. No pain or ulcers. given his baseline functional status would not proceed with any invasive evaluation and continue maximal medical therapy. Continue ASA. Started also on Plavix. LDL is 69. He is not on any statin (2) Chronic respiratory failure: Code(s): J96.10 - Chronic respiratory failure, unspecified whether with hypoxia or hypercapnia Status: Chronic Assessment and Plan: 2D echo with normal LV systolic function and no significant valvular disease. Mild pulmonary HTN noted, that is likely due to chronic resp failure (3) Aspiration pneumonia: Qualifiers: Aspiration pneumonia type: unspecified Laterality: bilateral Lung location: lower lobe of lung Qualified Code(s): J69.0 - Pneumonitis due to inhalation of food and vomit Code(s): J69.0 - Pneumonitis due to inhalation of food and vomit Status: Acute Assessment and Plan: management per primary team Additional Plan Thank you for allowing me to participate in this patient's care, I will be following up with you. Please do not hesitate to call me for any other inquiry Subjective Date/time seen: 09/11/19 15:04 Feels slightly better today, still on oxygen, leg swelling slightly better, no active leg pain Exam Narrative: Exam Narrative: contracted upper and lower ext, no ulcers. Awake and alert. . Const: General: no acute distress Eyes: Sclera: sclerae normal Neck: Neck: no JVD Carotids: no bruits Resp: Effort & Inspection: normal respiratory effort Auscultation: clear to auscultation bilaterally Cardio: Rate: regular rate and not tachycardic Rhythm: regular rhythm Heart sounds: no gallops, no murmurs and no rubs Neuro: Cranial nerves: Yes Normal hearing present Speech: normal speech Extrem: General: no edema Psych: Affect: normal affect Objective Data Vital Signs Vital Signs: Vital Signs - 24 hr 09/10/19 16:00 09/10/19 18:53 09/10/19 18:55 Temperature 37.1 C Pulse Rate 105 H 92 Respiratory Rate 21 H 20 Blood Pressure 146/84 H Pulse Oximetry 98 95 09/10/19 19:11 09/10/19 20:00 02/18/20 22:00 Temperature 37.0 C Pulse Rate 94 112 H 114 H Respiratory Rate 20 18 Blood Pressure 164/84 H Pulse Oximetry 96 09/11/19 00:00 09/11/19 01:09 09/11/19 01:14 Temperature Pulse Rate 105 H 100 98 Respiratory Rate 20 20 Blood Pressure Pulse Oximetry 09/11/19 04:00 09/11/19 06:00 09/11/19 08:00 Temperature 36.6 C Pulse Rate 99 111 H 103 H Respiratory Rate 18 Blood Pressure 128/82 Pulse Oximetry 96 09/11/19 09:39 09/11/19 09:41 09/11/19 09:48 Temperature Pulse Rate 112 H 110 H Respiratory Rate 20 20 Blood Pressure Pulse Oximetry 95 09/11/19 12:00 Temperature Pulse Rate 114 H Respiratory Rate Blood Pressure Pulse Oximetry Intake/Output Intake/Output: Intake & Output 09/08/19 09/09/19 09/10/19 09/11/19 23:59 23:59 23:59 23:59 Intake Total 9400 3320 2015.4 Balance 2420 3320 2015.4 Meds/Results Medications: Active Medications Generic Name Dose Route Start Last Admin Trade Name Freq PRN Reason Stop Dose Admin Acetaminophen 650 mg 09/11/19 07:20 Tylenol Tablet PO Q6H PRN Pain Acyclovir 800 mg 09/11/19 15:00 Zovirax Po PO 5 TIMES DAILY HEATHER Albuterol 5 mg 09/09/19 02:00 09/11/19 09:38 Albuterol Sulf Neb 2.5mg/0.5ml INHALATION 5 mg Q6HRT HEATHER Administration Aspirin 81 mg 09/10/19 09:00 09/11/19 10:14 Aspirin Ec PO 81 mg QAM HEATHER Administration Bisacodyl 5 mg 09/11/19 07:20 Dulcolax Tab PO HS PRN Constipation Calcium Carbonate 500 mg 09/11/19 09:00 09/11/19 10:15 Os-Augustin 500 +D Tablet PO 500 mg BID HEATHER Administration Clopidogrel Bisul
[2019-09-11] MEDS: PANTOPRAZOLE 40 MG TABLET PO (20:03)
--- NOTE | 2019-09-11 21:43 | PC.NURSE ---
Called pharmacy @ 1939 about missing acyclovir and again @ 2009 about still needing 400mg of acyclovir due to them only sending half the dose.
--- NOTE | 2019-09-11 22:49 | PC.NURSE ---
Called pharmacy @ 2200 in request for additional acyclovir dose that was never sent.
--- NOTE | 2019-09-11 22:59 | PC.NURSE ---
Called pharmacy in regards to the acyclovir not being given @ 1500. Pharmacy said to nonadminister all the doses past due and to just start the most recent dose.
[2019-09-11] MEDS: ACYCLOVIR 400 MG TABLET 800 MG PO (23:18)
[2019-09-12] VITALS (16 sets, daily range): BP systolic 105–141; BP diastolic 73–87; PULSE 52–122; RESP 16–20; TEMP 36.2–37.1; O2SAT 93–96
[2019-09-12] MEDS: ALBUTEROL SULFATE NEB 2.5 MG/0.5 ML INH 5 MG INHALATION ×4 (01:52→19:50)
[2019-09-12] MEDS: IPRATROPIUM BR 0.02% INH SOLN 0.5 MG/2.5 ML VIAL INHALATION ×4 (01:52→19:50)
[2019-09-12 05:59] LABS: Hematocrit 30.3 % (42.0-52.0); Hemoglobin 9.5 g/dL (14.0-18.0); Mean Corpuscular HGB Conc 31.4 g/dl (32-36); Mean Corpuscular Hemoglobin 27.9 pg (26-34); Mean Corpuscular Volume 89.1 fl (80-100); Mean Platelet Volume 10.9 fl (7.4-10.4); Platelet Count Result 179 k/mm3 (150-375); Red Cell Distribution Width 14.8 % (11.5-14.5); White Blood Count 10.3 K/mm3 (4.5-10.0)
[2019-09-12 06:19] LABS: Blood Urea Nitrogen 18 mg/dL (9-20); Calcium 8.6 mg/dL (8.4-10.2); Carbon Dioxide 23 mmol/L (22-30); Chloride 101 mmol/L (98-107); Estimated CRCL calculation 51 ml/min; Estimated Glomerular Filt Rate > 60; Glucose 115 mg/dL (75-110); Potassium 3.6 mmol/L (3.4-5.0); Sodium 136 mmol/L (137-145)
[2019-09-12] MEDS: DOCUSATE SODIUM 100 MG CAPSULE PO (09:20)
[2019-09-12] MEDS: POLYSACCHARIDE IRON COMPLEX 150 MG CAPSULE PO ×2 (09:20→16:57)
[2019-09-12] MEDS: ENOXAPARIN 40 MG/0.4 ML SYRINGE SUB-Q (09:20)
[2019-09-12] MEDS: FUROSEMIDE INJ 40 MG/4 ML VIAL IV PUSH (09:20)
[2019-09-12] MEDS: ACYCLOVIR 400 MG TABLET 800 MG PO ×5 (09:20→20:51)
[2019-09-12] MEDS: lisinopriL 10 MG TABLET PO (09:21)
[2019-09-12] MEDS: ASPIRIN 81 MG ENTERIC TABLET PO (09:21)
[2019-09-12] MEDS: PANTOPRAZOLE 40 MG TABLET PO ×2 (09:21→20:51)
[2019-09-12] MEDS: CLOPIDOGREL BISULFATE 75 MG TABLET PO (09:21)
[2019-09-12] MEDS: MULTIVITAMINS THERAPEUTIC TAB (*BKC) 1 TABLET PO (09:21)
--- NOTE | 2019-09-12 12:52 | PM.IMPN ---
Progress Note: A&P Assessment and Plan (1) Aspiration pneumonia: Qualifiers: Aspiration pneumonia type: unspecified Laterality: bilateral Lung location: lower lobe of lung Qualified Code(s): J69.0 - Pneumonitis due to inhalation of food and vomit Code(s): J69.0 - Pneumonitis due to inhalation of food and vomit Status: Acute Assessment and Plan: 09/12/19 12:52 Patient is 74-year-old male resident of nursing with history of stroke bed-bound and on soft diet however patient was given broccoli and he choked and patient was in distress he was given abdominal thrusts to remove the food from his pharyngeal patient is found to have aspiration pneumonia was started on Zosyn, will follow-up on the sputum and blood culture, repeat chest x-ray as an today to further evaluate, patient also has a moderate to severe peripheral vascular disease as both his lower extremities her hyperemic and somewhat anoxic, patient himself is a poor historian, patient had a modified swallow study yesterday requiring honey thickened diet, patient also seen by vascular and further workup is in progress, patient is feeling better not a short of breath as when he arrived he he denies any chest pain shortness of breath palpitation fever or chills, patient's symptoms improving clinically, repeat CXR shows b/l pleural effusion and concerning for pneumonia, continue Zosyn will add Lasix 40 mg IV will continue to monitor, today patient is feeling much better not a short of breath believes that he is urinating more than before, denies any fever or chills Repeat chest x-ray tomorrow and further recommendation to follow (2) Leukocytosis: Qualifiers: Leukocytosis type: unspecified Qualified Code(s): D72.829 - Elevated white blood cell count, unspecified Code(s): D72.829 - Elevated white blood cell count, unspecified Status: Acute Assessment and Plan: Secondary to aspiration pneumonia. Monitor CBCd. Trending down (3) Chronic anemia: Code(s): D64.9 - Anemia, unspecified Status: Chronic Assessment and Plan: No signs of acute blood loss. Likely anemia of chronic disease. Will monitor H/H, transfuse prn. (4) Essential hypertension: Code(s): I10 - Essential (primary) hypertension Status: Chronic Assessment and Plan: Stable Monitor blood pressure. We will administer PRN IV antihypertensives as needed overnight. (5) CVA (cerebrovascular accident): Qualifiers: CVA mechanism: unspecified Qualified Code(s): I63.9 - Cerebral infarction, unspecified Code(s): I63.9 - Cerebral infarction, unspecified Status: Chronic Assessment and Plan: stable. (6) Chronic respiratory failure: Code(s): J96.10 - Chronic respiratory failure, unspecified whether with hypoxia or hypercapnia Status: Chronic Assessment and Plan: Continue oxygen supplementation to maintain O2 sats >94%. (7) Peripheral artery disease: Code(s): I73.9 - Peripheral vascular disease, unspecified Status: Chronic Assessment and Plan: Peripheral pulses are palpable in all 4 limbs. We will obtain LE arterial duplex U/S bilaterally in am. Patient is seen by machine package sealer and further workup is in progress Subjective Date/time seen: 09/12/19 12:52 Patient is 74-year-old male resident of nursing with history of stroke bed-bound and on soft diet however patient was given broccoli and he choked and patient was in distress he was given abdominal thrusts to remove the food from his pharyngeal patient is found to have aspiration pneumonia was started on Zosyn, will follow-up on the sputum and blood culture, repeat chest x-ray as an today to further evaluate, patient also has a moderate to severe peripheral vascular disease as both his lower extremities her hyperemic and somewhat anoxic, patient himself is a poor historian, patient had a modified swallow study yesterday requiring h
--- NOTE | 2019-09-12 15:40 | PM.PNCARD ---
Progress Note: A&P Assessment and Plan (1) Peripheral artery disease: Code(s): I73.9 - Peripheral vascular disease, unspecified Status: Chronic Assessment and Plan: Mostly distal disease. No pain or ulcers. given his baseline functional status would not proceed with any invasive evaluation and continue maximal medical therapy. Continue ASA. Started also on Plavix. LDL is 69. He is not on any statin (2) Chronic respiratory failure: Code(s): J96.10 - Chronic respiratory failure, unspecified whether with hypoxia or hypercapnia Status: Chronic Assessment and Plan: 2D echo with normal LV systolic function and no significant valvular disease. Mild pulmonary HTN noted, that is likely due to chronic resp failure (3) Aspiration pneumonia: Qualifiers: Aspiration pneumonia type: unspecified Laterality: bilateral Lung location: lower lobe of lung Qualified Code(s): J69.0 - Pneumonitis due to inhalation of food and vomit Code(s): J69.0 - Pneumonitis due to inhalation of food and vomit Status: Acute Assessment and Plan: management per primary team Additional Plan Thank you for allowing me to participate in this patient's care, I will be following up with you. Please do not hesitate to call me for any other inquiry Subjective Date/time seen: 09/12/19 15:40 Feels fair today no new changes, still on home oxygen, no significant shortness breath at rest, no chest pain, leg swelling is better Exam Narrative: Exam Narrative: contracted upper and lower ext, no ulcers. Awake and alert. . Const: General: no acute distress Eyes: Sclera: sclerae normal Neck: Neck: no JVD Carotids: no bruits Resp: Effort & Inspection: normal respiratory effort Auscultation: clear to auscultation bilaterally Cardio: Rate: regular rate and not tachycardic Rhythm: regular rhythm Heart sounds: no gallops, no murmurs and no rubs Neuro: Cranial nerves: Yes Normal hearing present Speech: normal speech Extrem: General: no edema Psych: Affect: normal affect Objective Data Vital Signs Vital Signs: Vital Signs - 24 hr 09/11/19 16:00 09/11/19 19:39 09/11/19 19:50 Temperature Pulse Rate 118 H 104 H 102 H Respiratory Rate 20 20 Blood Pressure Pulse Oximetry 94 09/11/19 20:00 09/11/19 22:00 09/12/19 00:00 Temperature 36.9 C Pulse Rate 122 H 114 H 108 H Respiratory Rate 18 Blood Pressure 111/60 Pulse Oximetry 96 09/12/19 01:55 09/12/19 02:01 09/12/19 04:00 Temperature Pulse Rate 107 H 101 H 121 H Respiratory Rate 20 20 Blood Pressure Pulse Oximetry 09/12/19 06:00 09/12/19 08:00 09/12/19 08:10 Temperature 37.1 C Pulse Rate 118 H 112 H 101 H Respiratory Rate 16 20 Blood Pressure 139/87 Pulse Oximetry 96 09/12/19 12:00 Temperature Pulse Rate 107 H Respiratory Rate Blood Pressure Pulse Oximetry Intake/Output Intake/Output: Intake & Output 09/09/19 09/10/19 09/11/19 09/12/19 23:59 23:59 23:59 23:59 Intake Total 2420 3320 2546.4 260 Balance 2420 3320 2546.4 260 Meds/Results Medications: Active Medications Generic Name Dose Route Start Last Admin Trade Name Freq PRN Reason Stop Dose Admin Acetaminophen 650 mg 09/11/19 07:20 Tylenol Tablet PO Q6H PRN Pain Acyclovir 800 mg 09/11/19 15:00 09/12/19 12:22 Zovirax Po PO 800 mg 5 TIMES DAILY [facility] Administration Albuterol 5 mg 09/09/19 02:00 09/12/19 13:45 Albuterol Sulf Neb 2.5mg/0.5ml INHALATION 5 mg Q6HRT [facility] Administration Aspirin 81 mg 09/10/19 09:00 09/12/19 09:21 Aspirin Ec PO 81 mg QAM [facility] Administration Bisacodyl 5 mg 09/11/19 07:20 Dulcolax Tab PO HS PRN Constipation Calcium Carbonate 500 mg 09/11/19 09:00 09/12/19 09:21 Os-Augustin 500 +D Tablet PO 500 mg BID [facility] Administration Clopidogrel Bisulfate 75 mg 09/10/19 09:00 09/12/19 09:21 Plavix PO 75 mg QAM [facility]
[2019-09-13] VITALS (18 sets, daily range): BP systolic 122–148; BP diastolic 62–96; PULSE 70–109; RESP 16–24; TEMP 36–36.6; O2SAT 92–98
[2019-09-13] MEDS: ALBUTEROL SULFATE NEB 2.5 MG/0.5 ML INH 5 MG INHALATION ×4 (02:00→20:40)
[2019-09-13] MEDS: IPRATROPIUM BR 0.02% INH SOLN 0.5 MG/2.5 ML VIAL INHALATION ×4 (02:00→20:39)
--- NOTE | 2019-09-13 03:44 | PCRCNOTE ---
[facility]
[2019-09-13 05:58] LABS: Hematocrit 27.7 % (42.0-52.0); Hemoglobin 8.6 g/dL (14.0-18.0); Mean Corpuscular Hemoglobin 28.1 pg (26-34); Mean Corpuscular Volume 90.5 fl (80-100); Mean Platelet Volume 10.6 fl (7.4-10.4); Platelet Count Result 167 k/mm3 (150-375); Red Blood Count 3.06 M/mm3 (4.6-6.20); Red Cell Distribution Width 14.9 % (11.5-14.5); White Blood Count 7.4 K/mm3 (4.5-10.0)
[2019-09-13 06:12] LABS: Blood Urea Nitrogen 19 mg/dL (9-20); Calcium 8.5 mg/dL (8.4-10.2); Carbon Dioxide 29 mmol/L (22-30); Chloride 97 mmol/L (98-107); Estimated CRCL calculation 51 ml/min; Estimated Glomerular Filt Rate > 60; Glucose 110 mg/dL (75-110); Potassium 3.1 mmol/L (3.4-5.0); Sodium 137 mmol/L (137-145)
[2019-09-13] MEDS: ACYCLOVIR 400 MG TABLET 800 MG PO ×5 (09:43→23:22)
[2019-09-13] MEDS: DOCUSATE SODIUM 100 MG CAPSULE PO (09:43)
[2019-09-13] MEDS: CLOPIDOGREL BISULFATE 75 MG TABLET PO (09:43)
[2019-09-13] MEDS: ASPIRIN 81 MG ENTERIC TABLET PO (09:43)
[2019-09-13] MEDS: POLYSACCHARIDE IRON COMPLEX 150 MG CAPSULE PO ×2 (09:44→17:21)
[2019-09-13] MEDS: PANTOPRAZOLE 40 MG TABLET PO ×2 (09:44→20:19)
[2019-09-13] MEDS: lisinopriL 10 MG TABLET PO (09:44)
[2019-09-13] MEDS: MULTIVITAMINS THERAPEUTIC TAB (*BKC) 1 TABLET PO (09:45)
[2019-09-13] MEDS: FUROSEMIDE INJ 40 MG/4 ML VIAL IV PUSH (10:34)
[2019-09-13] MEDS: ENOXAPARIN 40 MG/0.4 ML SYRINGE SUB-Q (10:34)
[2019-09-13] MEDS: PANTOPRAZOLE SODIUM IV 40 MG VIAL IV PUSH (10:35)
[2019-09-13] MEDS: POTASSIUM CHLORIDE 10 MEQ TABLET 40 MEQ PO (11:47)
--- NOTE | 2019-09-13 15:27 | PM.IMPN ---
Progress Note: A&P Assessment and Plan (1) Aspiration pneumonia: Qualifiers: Aspiration pneumonia type: unspecified Laterality: bilateral Lung location: lower lobe of lung Qualified Code(s): J69.0 - Pneumonitis due to inhalation of food and vomit Code(s): J69.0 - Pneumonitis due to inhalation of food and vomit Status: Acute Assessment and Plan: 09/13/19 15:27 Patient is 74-year-old male resident of nursing with history of stroke bed-bound and on soft diet however patient was given broccoli and he choked and patient was in distress he was given abdominal thrusts to remove the food from his pharyngeal patient is found to have aspiration pneumonia was started on Zosyn, will follow-up on the sputum and blood culture, repeat chest x-ray as an today to further evaluate, patient also has a moderate to severe peripheral vascular disease as both his lower extremities her hyperemic and somewhat anoxic, patient himself is a poor historian, patient had a modified swallow study yesterday requiring honey thickened diet, patient also seen by vascular and further workup is in progress, patient is feeling better not a short of breath as when he arrived he he denies any chest pain shortness of breath palpitation fever or chills, patient's symptoms improving clinically, repeat CXR shows b/l pleural effusion and concerning for pneumonia, continue Zosyn will add Lasix 40 mg IV will continue to monitor, repeat chest x-ray still shows persistent pneumonia and pleural effusion however today patient is feeling much better not a short of breath believes that he is urinating more than before, denies any fever or chills, patient does have large hiatal hernia pushing into chest he will benefit consulting thoracic surgeon as outpatient I have spoke this with his POA, will monitor patient 1 more day and have a modified swallow study and further recommendation to follow (2) Leukocytosis: Qualifiers: Leukocytosis type: unspecified Qualified Code(s): D72.829 - Elevated white blood cell count, unspecified Code(s): D72.829 - Elevated white blood cell count, unspecified Status: Acute Assessment and Plan: Secondary to aspiration pneumonia. Monitor CBCd. Trending down (3) Chronic anemia: Code(s): D64.9 - Anemia, unspecified Status: Chronic Assessment and Plan: No signs of acute blood loss. Likely anemia of chronic disease. Will monitor H/H, transfuse prn. (4) Essential hypertension: Code(s): I10 - Essential (primary) hypertension Status: Chronic Assessment and Plan: Stable Monitor blood pressure. We will administer PRN IV antihypertensives as needed overnight. (5) CVA (cerebrovascular accident): Qualifiers: CVA mechanism: unspecified Qualified Code(s): I63.9 - Cerebral infarction, unspecified Code(s): I63.9 - Cerebral infarction, unspecified Status: Chronic Assessment and Plan: stable. (6) Chronic respiratory failure: Code(s): J96.10 - Chronic respiratory failure, unspecified whether with hypoxia or hypercapnia Status: Chronic Assessment and Plan: Continue oxygen supplementation to maintain O2 sats >94%. (7) Peripheral artery disease: Code(s): I73.9 - Peripheral vascular disease, unspecified Status: Chronic Assessment and Plan: Peripheral pulses are palpable in all 4 limbs. We will obtain LE arterial duplex U/S bilaterally in am. 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
--- NOTE | 2019-09-13 15:38 | PM.PNCARD ---
Progress Note: A&P Assessment and Plan (1) Peripheral artery disease: Code(s): I73.9 - Peripheral vascular disease, unspecified Status: Chronic Assessment and Plan: Mostly distal disease. No pain or ulcers. given his baseline functional status would not proceed with any invasive evaluation and continue maximal medical therapy. Continue ASA. Started also on Plavix. LDL is 69. He is not on any statin (2) Chronic respiratory failure: Code(s): J96.10 - Chronic respiratory failure, unspecified whether with hypoxia or hypercapnia Status: Chronic Assessment and Plan: 2D echo with normal LV systolic function and no significant valvular disease. Mild pulmonary HTN noted, that is likely due to chronic resp failure (3) Aspiration pneumonia: Qualifiers: Aspiration pneumonia type: unspecified Laterality: bilateral Lung location: lower lobe of lung Qualified Code(s): J69.0 - Pneumonitis due to inhalation of food and vomit Code(s): J69.0 - Pneumonitis due to inhalation of food and vomit Status: Acute Assessment and Plan: management per primary team Additional Plan Thank you for allowing me to participate in this patient's care, I will be following up with you. Please do not hesitate to call me for any other inquiry Subjective Date/time seen: 09/13/19 15:38 Feels okay today, still with mild shortness of breath, mild cough no chest pain no leg pain no nausea no vomiting Exam Narrative: Exam Narrative: contracted upper and lower ext, no ulcers. Awake and alert. . Const: General: no acute distress Eyes: Sclera: sclerae normal Neck: Neck: no JVD Carotids: no bruits Resp: Effort & Inspection: normal respiratory effort Auscultation: clear to auscultation bilaterally Cardio: Rate: regular rate and not tachycardic Rhythm: regular rhythm Heart sounds: no gallops, no murmurs and no rubs Neuro: Cranial nerves: Yes Normal hearing present Speech: normal speech Extrem: General: no edema Psych: Affect: normal affect Objective Data Vital Signs Vital Signs: Vital Signs - 24 hr 09/12/19 16:00 09/12/19 19:50 09/12/19 20:00 Temperature Pulse Rate 122 H 110 H 104 H Respiratory Rate 20 Blood Pressure Pulse Oximetry 95 09/12/19 20:02 09/12/19 20:49 09/13/19 00:00 Temperature 37.1 C Pulse Rate 105 H 96 99 Respiratory Rate 20 18 Blood Pressure 141/85 H Pulse Oximetry 95 09/13/19 02:00 09/13/19 02:10 09/13/19 04:00 Temperature Pulse Rate 102 H 102 H 103 H Respiratory Rate 20 20 Blood Pressure Pulse Oximetry 09/13/19 04:24 09/13/19 08:24 09/13/19 08:32 Temperature 36.6 C Pulse Rate 101 H 96 100 Respiratory Rate 24 H 20 20 Blood Pressure 148/69 H Pulse Oximetry 98 92 09/13/19 14:33 09/13/19 14:45 Temperature Pulse Rate 88 98 Respiratory Rate 20 20 Blood Pressure Pulse Oximetry Intake/Output Intake/Output: Intake & Output 09/10/19 09/11/19 09/12/19 09/13/19 23:59 23:59 23:59 23:59 Intake Total 3320 2546.4 950 360 Balance 3320 2546.4 950 360 Meds/Results Medications: Active Medications Generic Name Dose Route Start Last Admin Trade Name Freq PRN Reason Stop Dose Admin Acetaminophen 650 mg 09/11/19 07:20 Tylenol Tablet PO Q6H PRN Pain Acyclovir 800 mg 09/11/19 15:00 09/13/19 11:54 Zovirax Po PO 800 mg 5 TIMES DAILY [facility] Administration Albuterol 5 mg 09/09/19 02:00 09/13/19 14:32 Albuterol Sulf Neb 2.5mg/0.5ml INHALATION 5 mg Q6HRT [facility] Administration Aspirin 81 mg 09/10/19 09:00 09/13/19 09:43 Aspirin Ec PO 81 mg QAM [facility] Administration Bisacodyl 5 mg 09/11/19 07:20 Dulcolax Tab PO HS PRN Constipation Calcium Carbonate 500 mg 09/11/19 09:00 09/13/19 09:43 Os-Augustin 500 +D Tablet PO 500 mg BID [facility] Administration Clopidogrel Bisulfate 75 mg 09/10/19 09:00 09/13/19 09:43 Plavix PO 75 mg QAM [facility]
[2019-09-14] VITALS (11 sets, daily range): BP systolic 135; BP diastolic 76–88; PULSE 97–118; RESP 18–24; TEMP 36.3–36.4; O2SAT 91–98
[2019-09-14] MEDS: ALBUTEROL SULFATE NEB 2.5 MG/0.5 ML INH 5 MG INHALATION ×3 (02:16→15:12)
[2019-09-14] MEDS: IPRATROPIUM BR 0.02% INH SOLN 0.5 MG/2.5 ML VIAL INHALATION ×3 (02:16→15:13)
[2019-09-14 05:54] LABS: Hematocrit 27.9 % (42.0-52.0); Hemoglobin 8.8 g/dL (14.0-18.0); Mean Corpuscular HGB Conc 31.5 g/dl (32-36); Mean Corpuscular Hemoglobin 27.7 pg (26-34); Mean Corpuscular Volume 87.7 fl (80-100); Platelet Count Result 199 k/mm3 (150-375); Red Blood Count 3.18 M/mm3 (4.6-6.20); Red Cell Distribution Width 14.9 % (11.5-14.5); White Blood Count 6.9 K/mm3 (4.5-10.0)
[2019-09-14 06:09] LABS: Blood Urea Nitrogen 15 mg/dL (9-20); Calcium 8.6 mg/dL (8.4-10.2); Carbon Dioxide 30 mmol/L (22-30); Chloride 100 mmol/L (98-107); Estimated CRCL calculation 75 ml/min; Estimated Glomerular Filt Rate > 60; Glucose 103 mg/dL (75-110); Potassium 3.3 mmol/L (3.4-5.0); Sodium 137 mmol/L (137-145)
[2019-09-14] MEDS: ACYCLOVIR 400 MG TABLET 800 MG PO ×2 (08:51→12:10)
[2019-09-14] MEDS: lisinopriL 10 MG TABLET PO (08:52)
[2019-09-14] MEDS: ASPIRIN 81 MG ENTERIC TABLET PO (08:52)
[2019-09-14] MEDS: ENOXAPARIN 40 MG/0.4 ML SYRINGE SUB-Q (08:52)
[2019-09-14] MEDS: POLYSACCHARIDE IRON COMPLEX 150 MG CAPSULE PO (08:52)
[2019-09-14] MEDS: DOCUSATE SODIUM 100 MG CAPSULE PO (08:52)
[2019-09-14] MEDS: FUROSEMIDE INJ 40 MG/4 ML VIAL IV PUSH (08:52)
[2019-09-14] MEDS: CLOPIDOGREL BISULFATE 75 MG TABLET PO (08:52)
[2019-09-14] MEDS: MULTIVITAMINS THERAPEUTIC TAB (*BKC) 1 TABLET PO (08:52)
[2019-09-14] MEDS: PANTOPRAZOLE SODIUM IV 40 MG VIAL IV PUSH (08:53)
--- NOTE | 2019-09-14 12:38 | PM.PNCARD ---
Progress Note: A&P Assessment and Plan (1) Peripheral artery disease: Code(s): I73.9 - Peripheral vascular disease, unspecified Status: Chronic Assessment and Plan: Mostly distal disease. No pain or ulcers. given his baseline functional status would not proceed with any invasive evaluation and continue maximal medical therapy. Continue ASA. Started also on Plavix. LDL is 69. He is not on any statin (2) Chronic respiratory failure: Code(s): J96.10 - Chronic respiratory failure, unspecified whether with hypoxia or hypercapnia Status: Chronic Assessment and Plan: 2D echo with normal LV systolic function and no significant valvular disease. Mild pulmonary HTN noted, that is likely due to chronic resp failure (3) Aspiration pneumonia: Qualifiers: Aspiration pneumonia type: unspecified Laterality: bilateral Lung location: lower lobe of lung Qualified Code(s): J69.0 - Pneumonitis due to inhalation of food and vomit Code(s): J69.0 - Pneumonitis due to inhalation of food and vomit Status: Acute Assessment and Plan: management per primary team Additional Plan Thank you for allowing me to participate in this patient's care, I will be following up with you. Please do not hesitate to call me for any other inquiry Subjective Date/time seen: 09/14/19 12:38 Feels about the same today, no active shortness of breath at rest, no chest pain Exam Narrative: Exam Narrative: contracted upper and lower ext, no ulcers. Awake and alert. . Const: General: no acute distress Eyes: Sclera: sclerae normal Neck: Neck: no JVD Carotids: no bruits Resp: Effort & Inspection: normal respiratory effort Auscultation: clear to auscultation bilaterally Cardio: Rate: regular rate and not tachycardic Rhythm: regular rhythm Heart sounds: no gallops, no murmurs and no rubs Neuro: Cranial nerves: Yes Normal hearing present Speech: normal speech Extrem: General: no edema Psych: Affect: normal affect Objective Data Vital Signs Vital Signs: Vital Signs - 24 hr 09/13/19 14:00 09/13/19 14:33 09/13/19 14:45 Temperature 36.4 C Pulse Rate 107 H 88 98 Respiratory Rate 16 20 20 Blood Pressure 122/96 H Pulse Oximetry 98 09/13/19 16:00 09/13/19 20:00 02/21/20 20:40 Temperature Pulse Rate 109 H 100 100 Respiratory Rate 20 Blood Pressure Pulse Oximetry 09/13/19 20:42 09/13/19 20:48 09/13/19 22:00 Temperature 36.0 C L Pulse Rate 96 70 Respiratory Rate 20 20 Blood Pressure 131/62 Pulse Oximetry 94 93 09/14/19 00:00 09/14/19 02:16 09/14/19 02:24 Temperature Pulse Rate 100 97 100 Respiratory Rate 20 20 Blood Pressure Pulse Oximetry 09/14/19 04:00 09/14/19 06:00 09/14/19 07:59 Temperature 36.3 C L Pulse Rate 104 H 109 H 102 H Respiratory Rate 20 24 H Blood Pressure 135/88 Pulse Oximetry 94 09/14/19 08:00 09/14/19 08:06 09/14/19 12:00 Temperature Pulse Rate 102 H 102 H 118 H Respiratory Rate 24 H Blood Pressure Pulse Oximetry 91 Intake/Output Intake/Output: Intake & Output 09/11/19 09/12/19 09/13/19 09/14/19 23:59 23:59 23:59 23:59 Intake Total 2546.4 950 730 400 Balance 2546.4 950 730 400 Meds/Results Medications: Active Medications Generic Name Dose Route Start Last Admin Trade Name Freq PRN Reason Stop Dose Admin Acetaminophen 650 mg 09/11/19 07:20 Tylenol Tablet PO Q6H PRN Pain Acyclovir 800 mg 09/11/19 15:00 09/14/19 12:10 Zovirax Po PO 800 mg 5 TIMES DAILY [facility] Administration Albuterol 5 mg 09/09/19 02:00 09/14/19 07:58 Albuterol Sulf Neb 2.5mg/0.5ml INHALATION 5 mg Q6HRT [facility] Administration Aspirin 81 mg 09/10/19 09:00 09/14/19 08:52 Aspirin Ec PO 81 mg QAM [facility] Administration Bisacodyl 5 mg 09/11/19 07:20 Dulcolax Tab PO HS PRN Constipation Calcium Carbonate 500 mg 09/11/19 09:00 09/14/19 08:52
--- NOTE | 2019-09-14 12:42 | PM.DS ---
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 with history of stroke bed-bound and on soft diet however patient was given broccoli and he choked and patient was in distress he was given abdominal thrusts to remove the food from his pharyngeal patient is found to have aspiration pneumonia was started on Zosyn, will follow-up on the sputum and blood culture, repeat chest x-ray as an today to further evaluate, patient also has a moderate to severe peripheral vascular disease as both his lower extremities her hyperemic and somewhat anoxic, patient himself is a poor historian, patient had a modified swallow study yesterday requiring honey thickened diet, patient also seen by vascular and further workup is in progress, patient is feeling better not a short of breath as when he arrived he he denies any chest pain shortness of breath palpitation fever or chills, patient's symptoms improving clinically, repeat CXR shows b/l pleural effusion and concerning for pneumonia, continue Zosyn will add Lasix 40 mg IV will continue to monitor, repeat chest x-ray still shows persistent pneumonia and pleural effusion however today patient is feeling much better not a short of breath believes that he is urinating more than before, denies any fever or chills, patient does have large hiatal hernia pushing into chest he will benefit consulting thoracic surgeon as outpatient I have spoke this with his POA, will monitor patient 1 more day and have a modified swallow study and further recommendation to follow (2) Leukocytosis: Qualifiers: Leukocytosis type: unspecified Qualified Code(s): D72.829 - Elevated white blood cell count, unspecified Code(s): D72.829 - Elevated white blood cell count, unspecified Status: Acute Assessment and Plan: Secondary to aspiration pneumonia. Monitor CBCd. Trending down (3) Chronic anemia: Code(s): D64.9 - Anemia, unspecified Status: Chronic Assessment and Plan: No signs of acute blood loss. Likely anemia of chronic disease. Will monitor H/H, transfuse prn. (4) Essential hypertension: Code(s): I10 - Essential (primary) hypertension Status: Chronic Assessment and Plan: Stable Monitor blood pressure. We will administer PRN IV antihypertensives as needed overnight. (5) CVA (cerebrovascular accident): Qualifiers: CVA mechanism: unspecified Qualified Code(s): I63.9 - Cerebral infarction, unspecified Code(s): I63.9 - Cerebral infarction, unspecified Status: Chronic Assessment and Plan: stable. (6) Chronic respiratory failure: Code(s): J96.10 - Chronic respiratory failure, unspecified whether with hypoxia or hypercapnia Status: Chronic Assessment and Plan: Continue oxygen supplementation to maintain O2 sats >94%. (7) Peripheral artery disease: Code(s): I73.9 - Peripheral vascular disease, unspecified Status: Chronic Assessment and Plan: Peripheral pulses are palpable in all 4 limbs. We will obtain LE arterial duplex U/S bilaterally in am. Patient is seen by tool and die maker level five and further workup is in progress DS: Summary Hospital Course Reason for hospitalization: This is a pleasant 74 year old male who is known to be mostly bed bound and resides at [facility] following an illness about 10 years ago which the family believes might have been a stroke which left him with permanent weakness. The patient present
--- NOTE | 2019-09-14 14:11 | PCSTNOTE ---
REPEAT MBS RESULTS Please refer to the Modified Barium Swallow Evaluation in the EMR.
== END 2019-09-14 16:02 | DRG 178 ==
LOC: ANHED 18:46 → ANH2MED 20:32
PROVIDERS: Specialist; Admitting Provider Family Medicine; Emergency Provider Emergency Medicine; PCP Family Medicine; Visit Provider Family Medicine
DX: J69.0 Pneumonitis due to inhalation of food and vomit (principal); J96.10 Chronic respiratory failure, unspecified whether with hypoxia or hypercapnia; D72.829 Elevated white blood cell count, unspecified; I73.9 Peripheral vascular disease, unspecified; M06.9 Rheumatoid arthritis, unspecified; D50.9 Iron deficiency anemia, unspecified; K21.9 Gastro-esophageal reflux disease without esophagitis; D63.8 Anemia in other chronic diseases classified elsewhere; J44.9 Chronic obstructive pulmonary disease, unspecified; F41.9 Anxiety disorder, unspecified; Z86.73 Personal history of transient ischemic attack (TIA), and cerebral infarction without residual deficits; Z99.81 Dependence on supplemental oxygen; I27.20 Pulmonary hypertension, unspecified
CPT/HCPCS: 36415; 36600; 71045; 71046; 80048; 80061; 82375; 82805; 83050; 83605; 85025; 85027; 87040; 92526; 92611; 93005; 93306; 93923; 93970; 94640; 96361; 96365; 96366; 96375; 99285; A9270; C9113; G0378; J0360; J1650; J1940; J2543; J7030